=== PATIENT | female | born 1970 | race Caucasian/White ===

== ENCOUNTER → 2016-12-20 | Outpatient (CLI) | payer BC, OTHER ==
--- NOTE | 2016-12-20 17:25 | REP ---
Digital diagnostic bilateral mammography with CAD and focused bilateral breast sonography: History: Palpable lump in the right breast. Right-sided lump present for the last 5 months. Comparison mammography is from [facility] dated January 30, 2012 and October 22, 2010. Mammographic findings: A skin marker is affixed to the skin at the site of the palpable lump in the right breast and routine views of the right breast are augmented by magnified focal spot compression CC, MLO, and true MLO views. Diagnostic images were obtained of the left breast at my direction as well. Breast parenchyma is heterogeneously dense in a pattern, which inhibits the sensitivity of mammography. There are two well-circumscribed 1 cm nodular opacities projecting in the upper outer quadrant on the left. These persist on diagnostic imaging. There are scattered benign calcifications in the left breast. No other finding on the left. On the right, at the site of the palpable lump, there is a fairly well circumscribed oval-shaped 1.8 cm soft tissue density containing some calcifications in the retroareolar region. This persists on diagnostic imaging. No other significant mammographic finding. Sonographic findings: The right breast was scanned at 7 o'clock where there is a palpable lump. There is an irregularly shaped cyst, 2.6 cm from the nipple. This measures 1.6 x 1.6 x 1.3 cm. Along one wall of this cyst, there is some hypoechoic material or tissue. This does not meet the criteria of a simple cyst. The lesion appears to contain calcifications mammographically. On the left, sonography is performed from 12 o'clock to 3 o'clock. At 3 o'clock, there is a 0.9 cm cyst 1.9 cm from the nipple, which is sonographically simple. At 12 o'clock there is another cyst 4.6 cm from the nipple measuring 0.8 cm. Impression: 1. BIRADS category 4 suspicious right breast imaging. Complex cyst at the site of the palpable lump. Cyst aspiration and needle biopsy suggested under ultrasound guidance. 2. Heterogeneously dense breast parenchyma. 3. BIRADS category 2 benign left breast imaging with two simple cysts identified sonographically. BI-RADS/ACR category 4 mammogram. Suspicious abnormality - biopsy should be considered. Usually requires biopsy. This mammogram was interpreted with the aid of an FDA-approved computer-aided detection system. The patient states she/he had a clinical breast exam in November 2016. The patient letter being requested is m4 dense . Signed by Madi Marcus MD 12/23/2016 07:46 A
== END ==
LOC: M RAD 14:53
PROVIDERS: ATTEND Family Medicine
DX: Z12.39 Encounter for other screening for malignant neoplasm of breast (principal); L98.9 Disorder of the skin and subcutaneous tissue, unspecified

== ENCOUNTER → 2017-01-27 | Outpatient (CLI) | payer BC, OTHER ==
[~2017-01-27] MED LIST: LIDOCAINE 1% MDV 20ML VIAL As Ordered ONE; OMEP40CA2 PO; PHEN15CA PO; VITA20008 PO
--- NOTE | 2017-01-27 12:15 | REP ---
RIGHT BREAST ULTRASOUND GUIDED BIOPSY: The procedure was performed by LILLIAN Basurto, under the direct supervision of Dr. Ellis. The procedure along with its risks, benefits and complications were discussed with the patient prior to the examination. Informed consent was obtained both verbally and written. The patient was identified in the ultrasound suite and placed in supine position. A procedural time out was performed to assure that the correct patient, site and procedure were being performed. An appropriate site was chosen for needle entry using ultrasound guidance. This area was marked, prepped and draped in the usual sterile fashion. Local infiltrative anesthesia was achieved using 1% Xylocaine. A 13-gauge Mammotome biopsy device was advanced to the area of interest. Six core biopsy specimens were obtained. These were documented with post biopsy ultrasound imaging for each pass. The specimens were placed in CytoLite and sent to the lab for further evaluation. Results pending. A marker clip was placed at the biopsy site and the needle was removed. Following the procedure, the wound was cleansed and compressed. Post procedural ultrasound showed a small hematoma. This stayed stable the entire time and did not change. A soft dressing was applied to the biopsy entry site. The patient tolerated the procedure well and had no immediate complications. IMPRESSION: Uncomplicated right breast biopsy with ultrasound guidance. Reviewed by LILLIAN Patel 01/27/2017 12:19 PEdited and Signed by Romeo Ellis MD 01/27/2017 04:28 P
== END ==
LOC: M RADPRO 09:33
PROVIDERS: ATTEND Surgery
DX: N63.10 Unspecified lump in the right breast, unspecified quadrant (principal); E55.9 Vitamin D deficiency, unspecified; K21.9 Gastro-esophageal reflux disease without esophagitis; Z79.899 Other long term (current) drug therapy; Z87.891 Personal history of nicotine dependence

== ENCOUNTER 2017-02-21 10:50 | Day surgery (SDC) | payer BC, OTHER ==
[~2017-02-21] VITALS: Ht 152.4 cm; Wt 84.4 kg
[~2017-02-21 10:50] MED LIST changes: -LIDOCAINE 1% MDV 20ML VIAL As Ordered ONE
[2017-02-21] MEDS ORDERED: ACETAMINOPHEN 650 MG SUPP PR ONE (11:15)
[2017-02-21] MEDS ORDERED: LR 1,000 ML IV ONE (11:15)
[2017-02-21 11:50] LABS: MEAN CORPUSCULAR HEMOGLOBIN 29.9 pg (27.0-33.0); MEAN CORPUSCULAR VOLUME 90.4 fl (80.0-96.0); PLATELET COUNT, AUTOMATED 296 10^3/uL (150-450); RED CELL DISTRIBUTION WIDTH 13.2 % (11.5-14.5); WHITE BLOOD COUNT 5.7 10^3/uL (4.0-10.0)
[2017-02-21 12:11] LABS: CONTROL LINE HCG INT CTR LINE PRESENT
[2017-02-21] MEDS ORDERED: ACETAMINOPHEN 650 MG SUPP As Ordered ONE (13:02)
[2017-02-21] MEDS ORDERED: fentaNYL 100 MCG/2 ML INJECTION (J3010) As Ordered ONE ×2 (13:24→13:57)
[2017-02-21] MEDS ORDERED: MIDAZOLAM INJ 2 MG/2 ML VIAL (J2250) As Ordered ONE (13:24)
[2017-02-21] MEDS ORDERED: LIDOCAINE 2% INJ 100 MG/5 ML SDV (FOR ANES.) As Ordered ONE (13:24)
[2017-02-21] MEDS ORDERED: PROPOFOL 200 MG/20 ML VIAL As Ordered ONE (13:26)
[2017-02-21] MEDS ORDERED: dexameTHASONE 4 MG/ML 1ML VIAL (J1100) As Ordered ONE (13:26)
[2017-02-21] MEDS ORDERED: ONDANSETRON 4MG/2ML VIAL (J2405) As Ordered ONE (13:27)
[2017-02-21] MEDS ORDERED: PERCOCET 5MG/325MG TAB As Ordered ONE (13:56)
[2017-02-21] MEDS: fentaNYL 100 MCG/2 ML INJECTION (J3010) IV PRN ×4 (13:59→14:32)
[2017-02-21] MEDS ORDERED: LR 1,000 ML IV SCH (14:00)
[2017-02-21] MEDS ORDERED: ONDANSETRON 4MG/2ML VIAL (J2405) IV PRN (14:00)
[2017-02-21] MEDS: PERCOCET 5MG/325MG TAB PO PRN ×2 (14:11→14:45)
[2017-02-21] MEDS ORDERED: IBUPROFEN 800 MG TAB PO SCH (14:15)
[2017-02-21] MEDS ORDERED: PERCOCET 5MG/325MG TAB PO PRN (15:00)
[2017-02-21 16:00] VITALS: BP 148/88
--- NOTE | 2017-02-21 18:34 | RO ---
DATE OF PROCEDURE: 02/21/2017 Raegan is a 46-year-old female with a history of menometrorrhagia, and after extensive counseling in the office, a decision was made for dilation and curettage (D and C), hysteroscopy and NovaSure ablation. PREOPERATIVE DIAGNOSIS 1. Menometrorrhagia. POSTOPERATIVE DIAGNOSIS: 1. Menometrorrhagia. 2. Endometrial polyp. PROCEDURE: 1. Dilation and curettage. 2. Hysteroscopy. 3. NovaSure endometrial ablation. 4. Polypectomy. SURGEON: Dr. Aamir Barraza CHAMPION OF SUSTAINABLE DESIGN: ANESTHESIA: General. COMPLICATIONS: None. ESTIMATED BLOOD LOSS: Less than 10 mL. SPECIMENS SENT TO THE LAB: Endometrial curetting and endometrial polyp. DESCRIPTION OF PROCEDURE: After obtaining informed consent, the patient was taken to the operating room where general anesthetic was found be adequate. She was then draped and prepped in the usual sterile fashion in the dorsal lithotomy position. At this point, a straight catheter of the bladder was performed for approximately 150 mL of clear urine. A weighted speculum was then placed in the posterior fornix of vagina. Using a Carrillo retractor, the anterior lip of the cervix was then grasped with a single-tooth tenaculum. The uterus was sounded to approximately 9 cm in size. The cervix was serially dilated, the hysteroscope was inserted, and the endometrial cavity was inspected. Endometrial polyp noted at the fundal area. Bilateral tubal ostia visualized without any issues. At this point, the hysteroscope was removed, the polyp was removed. A sharp curettage of the endometrial lining was done. The NovaSure device was then inserted. The cavity length adjusted to 5.5, cavity width to 3.8. A cavity test was done. After passing the cavity test, the NovaSure device was activated, and the endometrial ablation cycle lasted approximately 64 seconds. Good ablative process noted. Good hemostasis noted. The patient tolerated the procedure well. She was then transferred to the recovery room in stable condition. Copy To: [facility]
== END 2017-02-21 16:08 | disposition home or self-care (01) ==
LOC: M SDC 10:50
PROVIDERS: ATTEND Obstetrics & Gynecology
DX: N92.4 Excessive bleeding in the premenopausal period (principal); N84.0 Polyp of corpus uteri; K21.9 Gastro-esophageal reflux disease without esophagitis; K57.32 Diverticulitis of large intestine without perforation or abscess without bleeding; Z79.899 Other long term (current) drug therapy; Z98.51 Tubal ligation status; Z87.891 Personal history of nicotine dependence
CPT/HCPCS: 36415; 58563; 84703; 85027; 86850; 86900; 86901; 88304; 96374; A4649; J1100; J2250; J2405; J3010

== ENCOUNTER → 2017-03-19 | Outpatient (CLI) | payer BC, OTHER ==
--- NOTE | 2017-03-21 10:16 | SLEEPCENT ---
DATE OF PROCEDURE: 03/19/2017 ORDERED BY: BETTE Diallo Nocturnal polysomnography was performed for evaluation of sleep physiology in this patient with a history of excessive somnolence and nonrestorative sleep. 7 hours and 34 minutes of data were reviewed. There were 423 minutes of sleep identified. Sleep latency was short at 5.5 minutes. Rapid eye movement (REM) latency was prolonged at 166 minutes. Sleep architecture was fair with fragmentation. Sleep progression was maintained. There were 3 REM cycles. Overall sleep efficiency 95%. The electrocardiogram showed a sinus rhythm with an average heart rate of 78 beats per minute. EEG showed reasonably normal waveforms for awake and sleep. No focal events were identified. There were 46 respiratory events identified of 10 seconds in duration or greater for an apnea hypopnea index of 6.5. The events were primarily obstructive, not exclusive to sleep stage, not exclusive to body posture. Arousals from respiratory events occurred 9.5 times per hour when arousals from snoring were included, and oxygen desaturations were seen into the 80s. Some limb activity was noted. Limb movement arousal index was 7.7. IMPRESSION: 1. Obstructive sleep apnea syndrome (G47.33). Apnea hypopnea index 6.5. 2. Periodic limb movement disorder (G47.61). Limb movement arousal index 7.7. RECOMMENDATION: The patient should be encouraged to return to the sleep disorder center for pressure therapy. In the interim, alcohol and sedative avoidance should be practiced and caution exercised during the operation of motor vehicles. Pending response to pressure therapy, interventions to reduce the frequency or arousals from limb activity may also be helpful.
== END ==
LOC: M SLEEP 19:51
PROVIDERS: ATTEND Nurse Practitioner Adult Health
DX: G47.33 Obstructive sleep apnea (adult) (pediatric) (principal); G47.61 Periodic limb movement disorder

== ENCOUNTER → 2017-04-17 | Outpatient (CLI) | payer BC, OTHER | LOC: M SLEEP 19:54 | DX: G47.33 Obstructive sleep apnea (adult) (pediatric) (principal); G47.61 Periodic limb movement disorder | CPT/HCPCS: 95811 ==

== ENCOUNTER → 2018-06-22 | Day surgery (SDC) | payer BC, OTHER ==
[~2018-06-22] VITALS: Ht 153.7 cm; Wt 548.8 kg
[~2018-06-22] MED LIST changes: +HYDR12CA PO; +LIDOCAINE 2% INJ 100 MG/5 ML SDV (FOR ANES.) As Ordered ONE; +NS 1,000 ML IV ONE; +OMEP20CA3 PO; +PROPOFOL 200 MG/20 ML VIAL As Ordered ONE
--- NOTE | 2018-06-22 13:19 | ROOR ---
Patient Name: Raegan Harper Procedure Date: 06/22/2018 12:48 PM Date of : 1970 Age: 47 Room: [facility] Gender: Female Note Status: Finalized Procedure: Upper GI endoscopy Indications: Epigastric abdominal pain, Heartburn Providers: Bandar Esqueda MD Referring MD: ADRIANA LARA MD Requesting Provider: Medicines: Monitored Anesthesia Care Complications: No immediate complications. Procedure: Pre-Anesthesia Assessment: - Prior to the procedure, a History and Physical was performed, and patient medications and allergies were reviewed. The patient is competent. The risks and benefits of the procedure and the sedation options and risks were discussed with the patient. All questions were answered and informed consent was obtained. Patient identification and proposed procedure were verified by the physician, the nurse and the anesthesiologist in the procedure room. Mental Status Examination: alert and oriented. CV Examination: normal. Prophylactic Antibiotics: The patient does not require prophylactic antibiotics. Prior Anticoagulants: The patient has taken no previous anticoagulant or antiplatelet agents. ASA Grade Assessment: II - A patient with mild systemic disease. After reviewing the risks and benefits, the patient was deemed in satisfactory condition to undergo the procedure. The anesthesia plan was to use monitored anesthesia care (MAC). Immediately prior to administration of medications, the patient was re-assessed for adequacy to receive sedatives. The heart rate, respiratory rate, oxygen saturations, blood pressure, adequacy of pulmonary ventilation, and response to care were monitored throughout the procedure. The physical status of the patient was re-assessed after the procedure. The Endoscope was introduced through the mouth, and advanced to the second part of duodenum. The upper GI endoscopy was accomplished without difficulty. The patient tolerated the procedure well. Findings: The Z-line was regular and was found 31 cm from the incisors. LA Grade B (one or more mucosal breaks greater than 5 mm, not extending between the tops of two mucosal folds) esophagitis with no bleeding was found in the distal esophagus. Biopsies were taken with a cold forceps for histology. Biopsies were obtained from the proximal and distal esophagus with cold forceps for histology of suspected eosinophilic esophagitis. Verification of patient identification for the specimen was done by the physician and nurse using the patient's name, date and medical record number. Estimated blood loss was minimal. A large hiatal hernia was present. Patchy mild inflammation characterized by erythema and granularity was found in the gastric body and in the gastric antrum. Biopsies were taken with a cold forceps for Helicobacter pylori testing. No gross lesions were noted in the duodenal bulb and in the second portion of the duodenum. Biopsies for histology were taken with a cold forceps for evaluation of celiac disease. Impression: - Z-line regular, 31 cm from the incisors. - LA Grade B reflux esophagitis. Biopsied. Biopsies were obtained from the proximal and distal esophagus with cold forceps for histology of suspected eosinophilic esophagitis. - Large hiatal hernia. - Gastritis. Biopsied. - No gross lesions in the duodenal bulb and in the second portion of the duodenum. Biopsied. Recommendation: - Patient has a contact number available for emergencies. The signs and symptoms of potential delayed complications were discussed with the patient. Return to normal activities tomorrow. Written discharge instructions were provided to the patient. - Resume previous diet. - Follow an antireflux regimen. - Use Prilosec (omeprazole) 20 mg PO twice daily - to be taken early childhood worker 1/2 hour before breakfast(on empty stomach) and again at bedtime ( atleast 3 hours after last meal) for 3 months. - No ibuprofen, naproxen, or other non-steroidal anti-inflammatory drugs. - Await pathology results. - Return to GI clinic in [facility] (address [address], [address], [place], [facility]) in 4 -- 6 weeks. Please call GI clinic @ [phone] for apppointment date and time. - If persistent acid reflux on optimum medication therapy then will consider referral for anti-reflux surgery. - Return to primary care physician. Bandar Esqueda MD Bandar Esqueda MD 06/22/2018 1:19:01 PM This report has been signed electronically. Number of Addenda: 0 Note Initiated On: 06/22/2018 12:48 PM Estimated Blood Loss: Estimated blood loss was minimal.
[2018-06-22 13:39] VITALS: BP 149/99
== END | disposition home or self-care (01) ==
LOC: M OPP 12:03
PROVIDERS: ATTEND Internal Medicine Gastroenterology
DX: R12 Heartburn (principal); K21.0 Gastro-esophageal reflux disease with esophagitis; K44.9 Diaphragmatic hernia without obstruction or gangrene; K29.70 Gastritis, unspecified, without bleeding; G47.30 Sleep apnea, unspecified; Z79.899 Other long term (current) drug therapy